=== PATIENT | female | born 1975 | race Caucasian/White ===

== ENCOUNTER 2020-07-20 02:16 | Emergency (ER) | payer OTHER ==
[2020-07-20] MEDS ORDERED: Acetaminophen 500 MG TAB ONE (03:25)
--- NOTE | 2020-07-20 10:00 | RAD ---
RIGHT SHOULDER 3 VIEWS: HISTORY: Shoulder pain from injury. FINDINGS: No fracture or dislocation. AC joint normally aligned. IMPRESSION: No acute process. POS: [facility]
== END 2020-07-20 04:12 | disposition home or self-care (01) ==
LOC: ERS 02:16
DX: M79.621 Pain in right upper arm (principal); E11.9 Type 2 diabetes mellitus without complications; I10 Essential (primary) hypertension; E78.5 Hyperlipidemia, unspecified; Z87.891 Personal history of nicotine dependence; Z79.4 Long term (current) use of insulin; Z79.899 Other long term (current) drug therapy

== ENCOUNTER 2021-01-05 11:10 | Outpatient (CLI) | payer OTHER | END 2021-01-05 11:11 | disposition home or self-care (01) | LOC: SCSRAD 11:10 | PROVIDERS: ATTEND Psychiatry & Neurology Neurology | DX: M50.223 Other cervical disc displacement at C6-C7 level (principal) | CPT/HCPCS: 72040 ==

== ENCOUNTER 2021-08-28 06:59 | Outpatient (CLI) | payer OTHER ==
[2021-08-28 08:53] LABS: Anion Gap 14 mmol/L (10-20); BUN (Urea Nitrogen) 21 mg/dL (7.0-18.7); Calc. Creatinine Clearance 0 mL/min (70-130); Calcium 9.5 mg/dL (7.8-10.44); Carbon Dioxide 28 mmol/L (22-29); Chloride 101 mmol/L (98-107); Glucose 169 mg/dL (70-105); Potassium 3.9 mmol/L (3.5-5.1); Sodium 139 mmol/L (136-145)
[2021-08-28 19:56] LABS: SARS-CoV-2 PCR by NAA Not Detected (NotDetected)
== END 2021-08-28 07:00 | disposition home or self-care (01) ==
LOC: LABBT 06:59
PROVIDERS: ATTEND Surgery Surgery of the Hand
DX: Z01.818 Encounter for other preprocedural examination (principal); G56.01 Carpal tunnel syndrome, right upper limb; G56.21 Lesion of ulnar nerve, right upper limb; Z20.822 Contact with and (suspected) exposure to COVID-19
CPT/HCPCS: 80048; 93005; 93010; U0003; U0005

== ENCOUNTER 2021-09-02 09:59 | Day surgery (SDC) | payer OTHER ==
[2021-08-27 11:03] VITALS: BMI 34.0
[2021-09-02] MEDS ORDERED: Xylocaine 1% w/ Epi 1:100K 10 ML VIAL ONE (10:57)
[2021-09-02] MEDS ORDERED: EPINEPHrine 1 MG/ML AMP ONE (10:57)
[2021-09-02] MEDS ORDERED: Bupivacaine 0.25% HCL 30 ML VIAL ONE (10:57)
[2021-09-02] MEDS ORDERED: Acetaminophen 500 MG TAB ONE (11:02)
[2021-09-02] MEDS ORDERED: Midazolam HCl 2 mg/2 ml Vial ONE (11:27)
[2021-09-02] MEDS ORDERED: Fentanyl 100 MCG/2 ML VIAL ONE ×2 (11:27→13:17)
[2021-09-02] MEDS ORDERED: ceFAZolin 2 GM/Dextrose 50 ML IVPB ONE (11:43)
[2021-09-02] MEDS ORDERED: PROPOFOL 200 MG/20 ML VIAL ONE (12:07)
[2021-09-02] MEDS ORDERED: Lidocaine 1% PF 5 ML VIAL ONE (12:07)
[2021-09-02] MEDS ORDERED: ePHEDrine 50 MG/ML VIAL ONE (12:07)
[2021-09-02] MEDS ORDERED: Albuterol Sulfate HFA (OR ONLY) ONE ×2 (12:07→12:14)
[2021-09-02] MEDS ORDERED: Ondansetron PF 4 MG/2 ML Vial ONE (12:07)
[2021-09-02] MEDS ORDERED: Dexamethasone 20 MG/5 ML VIAL ONE (12:07)
== END 2021-09-02 14:28 | disposition home or self-care (01) ==
LOC: SDC 09:59
PROVIDERS: ATTEND Surgery Surgery of the Hand
PROC: 01N40ZZ Release Ulnar Nerve, Open Approach (ICD-10-PCS; principal; 2021-09-02)
PROC: 01N50ZZ Release Median Nerve, Open Approach (ICD-10-PCS; principal; 2021-09-02)
DX: G56.01 Carpal tunnel syndrome, right upper limb (principal); G56.21 Lesion of ulnar nerve, right upper limb; M77.11 Lateral epicondylitis, right elbow; L40.9 Psoriasis, unspecified; I10 Essential (primary) hypertension; E11.9 Type 2 diabetes mellitus without complications; M19.90 Unspecified osteoarthritis, unspecified site; Z79.4 Long term (current) use of insulin; Z79.84 Long term (current) use of oral hypoglycemic drugs; Z79.899 Other long term (current) drug therapy; Z91.041 Radiographic dye allergy status
CPT/HCPCS: J0171; J0690; J2250; J3010; S0020